=== PATIENT | male | born 1970 | race Caucasian/White ===

== ENCOUNTER → 2016-03-30 | Outpatient (CLI) | payer OTHER ==
--- NOTE | 2016-03-30 14:18 | P.PN ---
Progress Note - Text This is a 45-year-old male with history of right flank pain that has gotten better for the first time we saw the patient and after multiple injections. The best results came from the lumbar is efficacy ablation that he had a few months ago. The patient is back to work now and his work involves lots of walking. The patient is still planning on losing more weight after his weight came down to 427 pounds from about 500 pounds previously. The patient still takes oxycodone and [place] as needed for his pain and he gets prescriptions for these medications from his primary care physician. Today there is no tenderness in the right side of the lumbar spine and in the right flank area. The patient's pain is not better today than when he first came to our clinic and I think we do not have to see him on a regular basis any more we can plan on seeing him on an as-needed basis and if his pain starts to get out of control then we will plan on doing another radiofrequency ablation on the lumbar medial branches.
== END | disposition home or self-care (01) ==
CPT/HCPCS: 99211

== ENCOUNTER → 2016-07-09 | Outpatient (CLI) | payer OTHER ==
[2016-07-09 10:34] LABS: Basophils % (A) 1 %; CH 26.3; CHCM 33.4; Eosinophils # (A) 0.3 k/uL (0-0.7); Eosinophils % (A) 5 %; HCT 38.9 % (39.0-53.0); HDW 3.41; HGB 13.1 gm/dL (13.0-17.5); Luc # (Auto) 0.17; Luc % (Auto) 3; Lymphocytes # (A) 1.6 k/uL (1.0-4.8); Lymphocytes % (A) 30 %; MCH 26.7 pg (25.0-35.0); MCHC 33.7 g/dL (31.0-37.0); MCV 79.1 fL (80.0-100.0); Mean Platelet Volume 6.5; Monocytes # (A) 0.4 k/uL (0-1.0); Monocytes % (A) 7 %; Neutrophils # (A) 2.9 k/uL (1.3-7.7); Neutrophils % (A) 55 %; Poikilocytosis Slight; RBC 4.92 m/uL (4.30-5.90); RDW 15.1 % (11.5-15.5); WBC 5.3 k/uL (3.8-10.6)
[2016-07-09 11:13] LABS: ALT 46 U/L (21-72); AST 27 U/L (17-59); Alkaline Phosphatase 59 U/L (38-126); Anion Gap 8 mmol/L; Blood Urea Nitrogen 18 mg/dL (9-20); Calcium 9.3 mg/dL (8.4-10.2); Carbon Dioxide 27 mmol/L (22-30); Chloride 108 mmol/L (98-107); Cholesterol 134 mg/dL (<200); Glucose 91 mg/dL (74-99); HDL Cholesterol 30 mg/dL (40-60); Non-African American GFR(MDRD) >60 (>60 ml/min/1.73 sqM); Potassium 4.3 mmol/L (3.5-5.1); Sodium 143 mmol/L (137-145); Total Bilirubin 0.8 mg/dL (0.2-1.3); Triglycerides 222 mg/dL (<150)
== END | disposition home or self-care (01) ==
LOC: LABWHC1 10:09
PROVIDERS: ATTEND Family Medicine
DX: E78.5 Hyperlipidemia, unspecified (principal)
CPT/HCPCS: 36415; 80053; 80061; 84443; 85025

== ENCOUNTER → 2016-08-24 | Outpatient (CLI) | payer OTHER ==
--- NOTE | 2016-08-24 22:27 | US ---
EXAMINATION TYPE: US abdomen limited DATE OF EXAM: 08/24/2016 COMPARISON: Prior ultrasound October 09, 2014. CLINICAL HISTORY: Lipoma D17.0. Right flank palpable area x 3 years Right flank palpable area: superficial 2.3 x 1.4 x 3.3cm isoechoic non-vascular area Scanning of area of clinical concern redemonstrates oval well-circumscribed isoechoic to adjacent sub cutaneous fat avascular solid lesion that is grossly stable in size and appearance just below the ski n surface in the subcutaneous tissue of the right flank. No new mass or fluid collection is identifie d. IMPRESSION: Overall stable findings likely reflect benign lipoma. Once again consider surgical excis ion if there is any growth or pain.
== END | disposition home or self-care (01) ==
LOC: RADUSWWP 15:42
PROVIDERS: ATTEND Surgery
DX: D17.0 Benign lipomatous neoplasm of skin and subcutaneous tissue of head, face and neck (principal)

== ENCOUNTER 2017-01-18 17:22 | Emergency (ER) | payer OTHER ==
[2017-01-18 18:25] VITALS: TEMP 98
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
[2017-01-18 19:51] LABS: Anisocytosis Slight; Basophils # (A) 0.1 k/uL (0-0.2); Basophils % (A) 1 %; CHCM 32.8; Eosinophils # (A) 0.4 k/uL (0-0.7); Eosinophils % (A) 5 %; HCT 43.6 % (39.0-53.0); HDW 3.34; HGB 14.1 gm/dL (13.0-17.5); Luc # (Auto) 0.13; Luc % (Auto) 2; Lymphocytes # (A) 2.4 k/uL (1.0-4.8); Lymphocytes % (A) 29 %; MCH 25.8 pg (25.0-35.0); MCHC 32.4 g/dL (31.0-37.0); MCV 79.8 fL (80.0-100.0); Monocytes # (A) 0.6 k/uL (0-1.0); Monocytes % (A) 7 %; Neutrophils # (A) 4.8 k/uL (1.3-7.7); Neutrophils % (A) 58 %; RBC 5.46 m/uL (4.30-5.90); RDW 16.3 % (11.5-15.5); WBC 8.3 k/uL (3.8-10.6); WBC (Perox) 8.71
--- NOTE | 2017-01-18 19:56 | XR ---
EXAMINATION TYPE: XR chest 2V DATE OF EXAM: 01/18/2017 COMPARISON: 01/07/2015 HISTORY: Dysrhythmia TECHNIQUE: Frontal and lateral views of the chest are obtained. FINDINGS: There is no heart failure nor confluent pneumonic infiltrate. Costophrenic angles are martir r. Heart size is normal. There are chest leads. Bony thorax is intact. IMPRESSION: No active cardiopulmonary disease. There is improved inspiration compared to old exam.
[2017-01-18 20:02] LABS: ALT 51 U/L (21-72); AST 30 U/L (17-59); Alkaline Phosphatase 54 U/L (38-126); Anion Gap 12 mmol/L; Blood Urea Nitrogen 15 mg/dL (9-20); Calcium 9.7 mg/dL (8.4-10.2); Carbon Dioxide 25 mmol/L (22-30); Chloride 104 mmol/L (98-107); Glucose 87 mg/dL (74-99); Magnesium 1.9 mg/dL (1.6-2.3); Non-African American GFR(MDRD) >60 (>60 ml/min/1.73 sqM); Potassium 4.6 mmol/L (3.5-5.1); Sodium 141 mmol/L (137-145); Total Bilirubin 0.6 mg/dL (0.2-1.3); Total Protein 7.8 g/dL (6.3-8.2)
[2017-01-18 20:08] LABS: Creatine Kinase 131 U/L (55-170)
[2017-01-18 20:14] LABS: Prothrombin Time 9.8 sec (9.0-12.0)
[2017-01-18 20:21] LABS: Creatine Kinase MB 1.6 ng/mL (0.0-2.4); Troponin I <0.012 ng/mL (0.000-0.034)
[2017-01-18 20:23] LABS: Partial Thromboplastin Time 19.9 sec (22.0-30.0)
--- NOTE | 2017-01-18 20:37 | CT ---
EXAMINATION TYPE: CT brain wo con DATE OF EXAM: 01/18/2017 COMPARISON: NONE HISTORY: Sinus pressure and headache. CT DLP: 1120.60 mGycm. Automated Exposure Control for Dose Reduction was Utilized. TECHNIQUE: CT scan of the head is performed without contrast. FINDINGS: Ventricles have normal size. There is no mass effect nor midline shift. There is no sign of intracranial hemorrhage. The calvarium is intact. CONCLUSION: Negative CT scan of the brain.
[2017-01-18] MEDS ORDERED: AMOXIC-POT CLAV 875MG STARTER 2 EACH TABLET PO STA (21:27)
[2017-01-18 21:40] VITALS: BP 142/80; PULSE 72; RESP 16
== END 2017-01-18 21:40 | disposition home or self-care (01) ==
LOC: EC 17:22
DX: I49.3 Ventricular premature depolarization (principal); J32.9 Chronic sinusitis, unspecified; F32.9 Major depressive disorder, single episode, unspecified; E78.5 Hyperlipidemia, unspecified; I10 Essential (primary) hypertension; H91.90 Unspecified hearing loss, unspecified ear; Z87.891 Personal history of nicotine dependence; Z79.51 Long term (current) use of inhaled steroids; Z79.899 Other long term (current) drug therapy; Z88.8 Allergy status to other drugs, medicaments and biological substances
CPT/HCPCS: 36415; 70450; 71020; 80053; 82550; 82553; 83735; 84484; 85025; 85610; 85730; 93005; 99285

== ENCOUNTER → 2017-03-31 | Outpatient (CLI) | payer BC ==
--- NOTE | 2017-03-31 15:26 | US ---
EXAMINATION TYPE: US abdomen complete DATE OF EXAM: 03/31/2017 COMPARISON: Soft tissue ultrasound 08/24/2016 CLINICAL HISTORY: 46-year-old male D17.9 Lipoma. Right flank palpable. TECHNIQUE: Multiple sonographic images of the abdomen are obtained. Findings: [employer] WORK[employer] 2ND SHIFT NOTES: Exam is technically limited due to large body habitus and overlying bowel gas. Liver Length: 22.8 cm Gallbladder Wall: 0.1 cm CBD: 0.2 cm Spleen: 14.6 cm Right Kidney: 11.5 x 5.4 x 5.0 cm Left Kidney: 14.1 x 5.7 x 5.5 cm Pancreas: Suboptimal visualization secondary to shadowing from bowel gas Liver: markedly echogenic, enlarged, and attenuating. The secondary limits assessment for focal lesio n. Gallbladder: Limited detail visualization. There is a hyperechoic 4 mm focus centrally within the ga llbladder probably representing underlying calculi. No abnormal distention, wall thickening, or peric holecystic fluid.Evidence for sonographic Godoy's sign: no CBD: wnl Spleen: enlarged Right Kidney: limitedly seen without obvious hydronephrosis. Left Kidney: limitedly seen without obvious hydronephrosis. Upper IVC: Suboptimal visualization Abd Aorta: upper and mid only seen, distally gassed out Right flank at the palpable site: solid, isoechoic, circumscribed oval mass with onion peel appearanc e located in the subcutaneous fat = 3.4 x 2.4 x 1.5cm, and was previously seen by US here where it me asured 3.3 x 2.3 x 1.4 cm. IMPRESSION: 1. Palpable area along the right flank corresponds to a probable 3.4 cm subcutaneous lipoma. 2. Hepatosplenomegaly. Severe hepatic steatosis. This secondarily limits assessment for focal lesion. 3. Suspect underlying cholelithiasis. Multiple structures are suboptimally visualized due to patient body habitus.
== END | disposition home or self-care (01) ==
LOC: RADUSWWP 14:16
PROVIDERS: ATTEND Surgery
DX: K76.0 Fatty (change of) liver, not elsewhere classified (principal); R16.2 Hepatomegaly with splenomegaly, not elsewhere classified; D17.9 Benign lipomatous neoplasm, unspecified
CPT/HCPCS: 76700

== ENCOUNTER 2017-06-27 07:03 | Day surgery (SDC) | payer BC ==
[2017-06-23 10:19] VITALS: BMI 56.5
[~2017-06-27 07:03] MED LIST: DEXAMETHASONE SOD PHOSPHATE 10 MG/ML 1 ML VIAL IV ONE; ONDANSETRON 4 MG/2 ML VIAL IVP ONE; SCOPOLAMINE 1.5MG/72HR PATCH TRANSDERM ONE
[2017-06-27 07:35] VITALS: TEMP 98.6
[2017-06-27] MEDS ORDERED: LIDOCAINE 1% 20 ML VIAL (10MG/ML) FOR IV START IV ONE (07:58)
[2017-06-27] MEDS ORDERED: LACTATED RINGERS 1,000 ML IV ONE (08:02)
[2017-06-27] MEDS ORDERED: MIDAZOLAM 2 MG/2 ML VIAL ONE (08:15)
[2017-06-27] MEDS ORDERED: KETOROLAC 30 MG/ML 1 ML VIAL ONE (08:15)
[2017-06-27] MEDS ORDERED: LIDOCAINE 1% INJ 10MG/ML (20 ML MDV) ONE (08:15)
[2017-06-27] MEDS ORDERED: GLUCAGON 1 MG/ML VIAL ONE (08:15)
[2017-06-27] MEDS ORDERED: PROPOFOL 10 MG/ML 20 ML VIAL IV ONE (08:15)
--- NOTE | 2017-06-27 08:49 | P.PCN ---
Date of Procedure: 06/27/17 Preoperative Diagnosis: Anemia, dark blood in stool, change in bowel habits Postoperative Diagnosis: Normal mucosa to the area of the cecum, internal hemorrhoids Procedure(s) Performed: Colonoscopy Anesthesia: SUBHA Surgeon: Alba Payne Estimated Blood Loss (ml): 0 IV fluids (ml): 300 Pathology: none sent Condition: stable Disposition: PACU Indications for Procedure: Anemia, history of dark stools Operative Findings: Internal hemorrhoids Description of Procedure: Patient was taken to the endoscopy suite and placed in the left lateral decubitus position. Special care was taken with his right knee as he states that at times this goes out of joint. Sedation was given. Rectal examination was performed patient was noted to have adequate sphincter tone no masses. Colonoscope was passed through the anus into the rectum. It was passed into the sigmoid colon which was somewhat spastic and glucagon was given. Was able to be passed through the sigmoid colon up to the splenic flexure transverse colon hepatic flexure right colon down to the area of the cecum. The cecum was clearly visualized however despite multiple attempts we could not pass the scope into the cecum. No mucosal lesions of concern were seen in the area of the cecum however. Careful observation was then madeof the mucosa as the colonoscope was withdrawn. No mucosal lesions of concern were noted in the right colon or the transverse colon. No mucosal lesions of concern in the left colon or sigmoid colon. Scope was brought to the rectum where it was retroflexed internal hemorrhoids identified. The patient's bowel prep was somewhat suboptimal making for mucosal detail somewhat difficult to evaluate however no lesions of concern were noted. Approximately 8 minutes were taken to withdraw the scope from the area of the cecum to the rectum. Impression/plan: 1. Anemia of uncertain etiology no colonic lesions identified to cause this 2. Internal hemorrhoids Plan: 1. Consider EGD to evaluate for anemia 2. At this time no colonic lesions of concern identified 3. Conservative management of hemorrhoids 4. Repeat scope 7-10 years unless patient develops symptoms or reason prior to this for repeat colonoscopy
[2017-06-27 08:51] VITALS: RESP 18
--- NOTE | 2017-06-27 08:51 | P.DS ---
Providers Attending physician: Alba Payne Primary care physician: Armand Jewell Plan - Discharge Summary New Discharge Prescriptions: No Action Ascorbic Acid [Vitamin C] 1,000 mg PO DAILY Atorvastatin [Lipitor] 40 mg PO HS Multivitamin [Men's Multi-Vitamin] 1 tab PO DAILY Fish Oil/Dha/Epa [Fish Oil 1,200 mg Fish Oil] 1,200 mg PO BID Fluticasone Nasal [place] [Flonase Nasal [place]] 2 spray EA NOSTRIL DAILY Methocarbamol [Robaxin] 1,000 mg PO QID PRN PRN Reason: Pain Cyanocobalamin [Vitamin B-12] 1,000 mcg PO DAILY Losartan Potassium [Cozaar] 100 mg PO DAILY Cholecalciferol [Vitamin D3] 5,000 unit PO DAILY oxyCODONE HCL 15 mg PO Q6HR PRN PRN Reason: Pain Celecoxib [CeleBREX] 200 mg PO BID Discharge Medication List Ascorbic Acid [Vitamin C] 1,000 mg PO DAILY 12/03/14 [History] Atorvastatin [Lipitor] 40 mg PO HS 12/03/14 [History] Fish Oil/Dha/Epa [Fish Oil 1,200 mg Fish Oil] 1,200 mg PO BID 12/03/14 [History] Multivitamin [Men's Multi-Vitamin] 1 tab PO DAILY 12/03/14 [History] Fluticasone Nasal [place] [Flonase Nasal [place]] 2 spray EA NOSTRIL DAILY 12/23/14 [History] Methocarbamol [Robaxin] 1,000 mg PO QID PRN 04/22/15 [History] Cyanocobalamin [Vitamin B-12] 1,000 mcg PO DAILY 11/09/15 [History] Losartan Potassium [Cozaar] 100 mg PO DAILY 11/09/15 [History] Cholecalciferol [Vitamin D3] 5,000 unit PO DAILY 12/11/15 [History] oxyCODONE HCL 15 mg PO Q6HR PRN 01/18/17 [History] Celecoxib [CeleBREX] 200 mg PO BID 06/23/17 [History] Follow up Appointment(s)/Referral(s): Alba Payne MD [STAFF PHYSICIAN] - 1 Week Activity/Diet/Wound Care/Special Instructions: Do not drive today Discharge Disposition: HOME SELF-CARE
[2017-06-27 09:28] VITALS: BP 115/64; PULSE 74
== END 2017-06-27 09:30 | disposition home or self-care (01) ==
LOC: ORWHC2ENDO 07:03
PROVIDERS: ATTEND Surgery
DX: K64.8 Other hemorrhoids (principal); D64.9 Anemia, unspecified; E78.5 Hyperlipidemia, unspecified; I10 Essential (primary) hypertension; F41.9 Anxiety disorder, unspecified; F32.9 Major depressive disorder, single episode, unspecified; M54.9 Dorsalgia, unspecified; M19.90 Unspecified osteoarthritis, unspecified site; E66.01 Morbid (severe) obesity due to excess calories; Z68.43 Body mass index [BMI] 50.0-59.9, adult; H91.90 Unspecified hearing loss, unspecified ear; G47.33 Obstructive sleep apnea (adult) (pediatric); Z99.89 Dependence on other enabling machines and devices; Z79.51 Long term (current) use of inhaled steroids; Z79.899 Other long term (current) drug therapy; Z87.891 Personal history of nicotine dependence; Z88.8 Allergy status to other drugs, medicaments and biological substances
CPT/HCPCS: 45378; J2250; J1610; J2001; J1885; J2704

== ENCOUNTER → 2018-05-14 | Outpatient (CLI) | payer BC, OTHER ==
--- NOTE | 2018-05-15 08:36 | XR ---
Right foot and right ankle history: Pain, erythema, cellulitis 3 views of the right foot and 3 views of the right ankle are submitted. There is spurring at the tibiotalar joint. Small plantar calcaneal spur is noted, enthesophyte presen t at the insertion of the Achilles tendon. Alignment and bone mineralization are maintained. Some cor tical thickening suspected. There may be distal diaphyseal tibia. Soft tissue swelling is noted. No e vident fracture or dislocation. Hallux valgus deformity noted. There is associated degenerative bianchi e. No evident periostitis to suggest osteomyelitis. IMPRESSION: Cortical thickening noted within the tibia, see report of right leg same date. Soft tissu e swelling, osteoarthritis. Additional findings above.
--- NOTE | 2018-05-15 10:35 | XR ---
EXAMINATION TYPE: XR tibia fibula RT DATE OF EXAM: 05/15/2018 COMPARISON: NONE HISTORY: 47-year-old male pain, redness, and cellulitis medially. Fall 9 days ago. TECHNIQUE: 2 views FINDINGS: Suggestion of old healed fracture deformities proximal third fibular shaft and distal third tibial sh aft. Pronounced hypertrophic well-formed bony callus is demonstrated. There is overlying deformity to the medial side and soft tissues. No fatimah periostitis or osteolysis. IMPRESSION: Chronic healed fracture deformity distal third tibial shaft. Overlying medial sided soft tissue defor mity suggesting healed ulcer or healed site of prior penetrating injury. No convincing radiographic e vidence for osteomyelitis. If further evaluation is desired, consider three-phase bone scan or MRI.
== END | disposition home or self-care (01) ==
LOC: RADXRMAIN 15:22
PROVIDERS: ATTEND Midwife
DX: M19.071 Primary osteoarthritis, right ankle and foot (principal)

== ENCOUNTER 2018-08-24 17:46 | Emergency (ER) | payer OTHER ==
[2018-08-24 17:56] VITALS: TEMP 98.4
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
[2018-08-24] MEDS ORDERED: SODIUM CHLORIDE 0.9% 500 ML 500 ML IV ONE (18:20)
[2018-08-24 19:02] LABS: Anisocytosis Slight; Basophils % (A) 0 %; Eosinophils # (A) 0.3 k/uL (0-0.7); Eosinophils % (A) 4 %; HCT 43.7 % (39.0-53.0); HGB 13.9 gm/dL (13.0-17.5); Lymphocytes # (A) 2.1 k/uL (1.0-4.8); Lymphocytes % (A) 29 %; MCH 24.9 pg (25.0-35.0); MCHC 31.8 g/dL (31.0-37.0); MCV 78.2 fL (80.0-100.0); Mean Platelet Volume 6.9; Microcytosis Slight; Monocytes # (A) 0.4 k/uL (0-1.0); Monocytes % (A) 6 %; Neutrophils # (A) 4.3 k/uL (1.3-7.7); Neutrophils % (A) 59 %; Platelet Count 305 k/uL (150-450); RBC 5.58 m/uL (4.30-5.90); WBC 7.2 k/uL (3.8-10.6)
[2018-08-24 19:21] LABS: ALT 55 U/L (21-72); AST 49 U/L (17-59); African American GFR (CKD) >90 (>60 ml/min/1.73 sqM); Albumin 4.2 g/dL (3.5-5.0); Alkaline Phosphatase 60 U/L (38-126); Anion Gap 10 mmol/L; Blood Urea Nitrogen 16 mg/dL (9-20); Calcium 9.7 mg/dL (8.4-10.2); Carbon Dioxide 25 mmol/L (22-30); Chloride 106 mmol/L (98-107); Glucose 110 mg/dL (74-99); Sodium 141 mmol/L (137-145); Total Bilirubin 0.7 mg/dL (0.2-1.3); Total Protein 7.2 g/dL (6.3-8.2)
[2018-08-24 19:23] LABS: Potassium 4.6 mmol/L (3.5-5.1)
[2018-08-24 19:31] VITALS: BP 148/79; PULSE 82; RESP 18
== END 2018-08-24 19:49 | disposition home or self-care (01) ==
LOC: EC 17:46
DX: K92.1 Melena (principal); I10 Essential (primary) hypertension; K59.00 Constipation, unspecified; E78.5 Hyperlipidemia, unspecified; G47.30 Sleep apnea, unspecified; Z99.89 Dependence on other enabling machines and devices; Z87.891 Personal history of nicotine dependence; Z79.1 Long term (current) use of non-steroidal anti-inflammatories (NSAID); Z79.899 Other long term (current) drug therapy; Z88.8 Allergy status to other drugs, medicaments and biological substances
CPT/HCPCS: 36415; 80053; 82272; 85025; 99284

== ENCOUNTER 2020-11-10 21:15 | Emergency (ER) | payer OTHER ==
[2020-11-10 21:22] VITALS: PULSE 79
[2020-11-10] MEDS ORDERED: KETOROLAC 15 MG/ML 1 ML VIAL IVP STA (21:36)
[2020-11-10] MEDS ORDERED: MORPHINE SULFATE 4 MG/ML SYRINGE IV STA (21:36)
[2020-11-10] MEDS ORDERED: SODIUM CHLORIDE 0.9% 1,000 ML IV STA (21:36)
[2020-11-10] MEDS ORDERED: ONDANSETRON 4 MG/2 ML VIAL IVP STA (21:36)
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
[2020-11-10 22:33] LABS: Appearance,Urine Clear (Clear); Bilirubin,Urine Negative (Negative); Blood,Urine Moderate (Negative); Color,Urine Yellow; Glucose,Urine (UA) Negative (Negative); Hyaline Casts,Urine 24 /lpf (0-2); Ketones,Urine Negative (Negative); Leukocyte Esterase,Urine Negative (Negative); Mucus,Urine Many /hpf; Nitrite,Urine Negative (Negative); Protein,Urine Trace (Negative); RBC,Urine 172 /hpf (0-5); Specific Gravity,Urine 1.022 (1.001-1.035); Squamous Epithelial Cell,Urine 1 /hpf (0-4); Urobilinogen,Urine <2.0 mg/dL (<2.0); WBC,Urine 1 /hpf (0-5)
--- NOTE | 2020-11-10 22:37 | XR ---
EXAMINATION TYPE: XR KUB DATE OF EXAM: 11/10/2020 COMPARISON: NONE HISTORY: Flank pain TECHNIQUE: 2 views upright FINDINGS: There is no sign of intestinal obstruction or pneumoperitoneum. Fecal pattern is normal. Th ere are no pathologic calcifications over the kidneys. Lung bases appear clear. IMPRESSION: Nonacute abdomen.
[2020-11-10] MEDS ORDERED: MORPHINE SULFATE 2 MG/ML SYRINGE IVP ONE (22:46)
[2020-11-10 22:48] LABS: Anisocytosis Slight; Basophils % (A) 0 %; Eosinophils # (A) 0.1 k/uL (0-0.7); Eosinophils % (A) 1 %; HCT 42.2 % (39.0-53.0); HGB 14.2 gm/dL (13.0-17.5); Lymphocytes # (A) 1.2 k/uL (1.0-4.8); Lymphocytes % (A) 15 %; MCHC 33.6 g/dL (31.0-37.0); MCV 80.2 fL (80.0-100.0); Mean Platelet Volume 7.1; Monocytes # (A) 0.5 k/uL (0-1.0); Monocytes % (A) 6 %; Neutrophils # (A) 6.2 k/uL (1.3-7.7); Neutrophils % (A) 76 %; Platelet Count 262 k/uL (150-450); Poikilocytosis Slight; RBC 5.25 m/uL (4.30-5.90); WBC 8.1 k/uL (3.8-10.6)
[2020-11-10 22:50] LABS: ALT 69 U/L (4-49); AST 66 U/L (17-59); African American GFR (CKD) >90 (>60 ml/min/1.73 sqM); Albumin 4.4 g/dL (3.5-5.0); Alkaline Phosphatase 63 U/L (38-126); Amylase 44 U/L (30-110); Anion Gap 12 mmol/L; Blood Urea Nitrogen 18 mg/dL (9-20); Calcium 9.7 mg/dL (8.4-10.2); Carbon Dioxide 22 mmol/L (22-30); Chloride 102 mmol/L (98-107); Glucose 137 mg/dL (74-99); Lipase 105 U/L (23-300); Non-African American GFR(CKD) >90 (>60 ml/min/1.73 sqM); Sodium 136 mmol/L (137-145); Total Bilirubin 0.8 mg/dL (0.2-1.3); Total Protein 7.3 g/dL (6.3-8.2)
[2020-11-10 23:33] LABS: Potassium 4.9 mmol/L (3.5-5.1)
[2020-11-10] MEDS ORDERED: TAMSULOSIN 0.4 MG CAP.ER.24H PO STA (23:52)
[2020-11-10] MEDS ORDERED: MORPHINE SULFATE 4 MG/ML SYRINGE IVP STA (23:52)
[2020-11-10] MEDS ORDERED: ACET/COD 300 MG/30 MG STARTER PACK 6 TAB BTL PO STA (23:57)
[2020-11-11] MEDS ORDERED: VALSARTAN 160 MG TAB PO STA
[2020-11-11 00:19] VITALS: BP 184/101; RESP 17; TEMP 98.1
== END 2020-11-11 00:24 | disposition home or self-care (01) ==
LOC: EC 21:15
DX: N20.0 Calculus of kidney (principal); I10 Essential (primary) hypertension; E78.5 Hyperlipidemia, unspecified; F32.9 Major depressive disorder, single episode, unspecified; Z79.1 Long term (current) use of non-steroidal anti-inflammatories (NSAID); Z79.899 Other long term (current) drug therapy; Z82.49 Family history of ischemic heart disease and other diseases of the circulatory system
CPT/HCPCS: 36415; 80053; 82150; 83690; 85025; 81001; 74018; 96374; 96375 ×2; 96376 ×2; 96361; 99284; J2270 ×3; J2405; J1885

== ENCOUNTER 2020-11-12 17:36 | Emergency (ER) | payer OTHER ==
[2020-11-12 19:30] VITALS: TEMP 98.7
[2020-11-12 19:56] VITALS: BP 139/91; PULSE 78; RESP 20
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
--- NOTE | 2020-11-12 21:13 | CT ---
EXAMINATION TYPE: CT abdomen pelvis wo con DATE OF EXAM: 11/12/2020 COMPARISON: Ultrasound abdomen 03/31/2017 HISTORY: Left side flank pain and hematuria. CT DLP: 3475 mGycm Automated exposure control for dose reduction was used. TECHNIQUE: Helical acquisition of images was performed from the lung bases through the pelvis. FINDINGS: Technical limitation: There is a ringlike artifact throughout much of the abdomen, with hyperdensity in the left lateral position over the abdomen due to body habitus. LUNG BASES: No acute process. However, an incidental 1.6 cm ground glass opacity is noted in the rig ht lower lobe; would recommend eventual follow-up lung CT imaging to further characterize the lungs. LIVER/GB: No significant abnormality is appreciated. PANCREAS: No significant abnormality is seen. SPLEEN: No significant abnormality is seen. ADRENALS: No significant abnormality is seen. KIDNEYS, URETERS, BLADDER: 1.) There is a 3 mm calcification in the distal most left ureter, associated with minimal hydroureter and mild on the left. There are two other 3 mm nonobstructing calcifications within the left kidney. There are two 2 mm nonobstructing calcifications in the right kidney. There is no right hydronephros is or hydroureter. Urinary bladder is negative. 2.) There is a 6 cm hypodense mass within the kidney posterolaterally. CT attenuation measures approx imately 33 Hounsfield units. Recommend further characterization with dedicated triple phase renal mas s protocol with CT or MRI. . FREE AIR: No free air is visualized RETROPERITONEAL ADENOPATHY: None visualized REPRODUCTIVE ORGANS: No significant abnormality is seen URINARY BLADDER: No significant abnormality is seen. PELVIC ADENOPATHY: None visualized. OSSEOUS STRUCTURES: No significant abnormality is seen. BOWEL: No significant abnormality is seen. IMPRESSION: 1. MINIMAL LEFT OBSTRUCTIVE UROPATHY SECONDARY TO 3 MM DISTAL LEFT URETERAL CALCIFICATION. 2. INCIDENTAL 6 CM HYPODENSE LEFT RENAL MASS, CONCERNING FOR POSSIBLE RENAL CELL CARCINOMA, WITH REC OMMENDATION FOR FOLLOW-UP RENAL MASS PROTOCOL CT/MRI CHARACTERIZATION. 2. INCIDENTAL FINDIN.6 CM GROUNDGLASS RIGHT LOWER LOBE PULMONARY NODULE, DISCUSSED.
== END 2020-11-12 21:42 | disposition home or self-care (01) ==
LOC: EC 17:36
DX: N20.0 Calculus of kidney (principal); N28.89 Other specified disorders of kidney and ureter; I10 Essential (primary) hypertension; E78.5 Hyperlipidemia, unspecified; Z79.1 Long term (current) use of non-steroidal anti-inflammatories (NSAID); Z79.899 Other long term (current) drug therapy; Z82.49 Family history of ischemic heart disease and other diseases of the circulatory system
CPT/HCPCS: 74176; 81001; 87086; 99284

== ENCOUNTER → 2020-11-27 | Outpatient (CLI) | payer OTHER ==
--- NOTE | 2020-11-27 13:42 | CT ---
EXAMINATION TYPE: CT abdomen pelvis w con DATE OF EXAM: 11/27/2020 COMPARISON: 11/27/2020 INDICATION: Renal mass DLP: 8379.5 mGycm, Automated exposure control for dose reduction was used. CONTRAST: 100 mL of Isovue 300. Study performed with Oral Contrast TECHNIQUE: Axial images were obtained from above the diaphragm to the pubic rami in the axial plane a t 5 mm thick sections. Reconstructed images are reviewed on the computer in the coronal plane. FINDINGS: Limited CT sections are obtained the lung bases. A 0.3 cm nodule may be in the anterior right middle lobe. Series 4 image 3. There is a 1.6 cm nodule in the posterior right lung base. Series [address] ABDOMEN: Liver: Normal Spleen: Normal Pancreas: Normal Adrenal glands: The adrenal glands are normal. Gallbladder: Normal Kidneys: There is a 7.2 x 6.5 cm mass along the posterior lateral upper pole left kidney. No hydronep hrosis is present. No cysts are present. Delayed images were obtained through the kidneys, mass is slightly hypodense enhancement compared to the remaining portions of the left kidney. Aorta: Vascular calcification is within the aorta. Inferior vena cava: Normal. CT PELVIS: Loops of bowel within the abdomen and pelvis are normal. There are loops of bowel which are incom pletely distended or lack oral contrast limiting their evaluation. Appendix: Normal as visualized. Urinary bladder: Normal. Genitourinary structures: Prostate appears normal Osseous structures: No suspicious lytic or sclerotic lesions. Some degenerative disc changes through the lumbar spine IMPRESSIONS: 1. 7.2 x 6.5 cm mass posterior lateral upper pole left kidney. Workup for renal cell carcinoma is re commended. 2. There is a 1.6 cm pulmonary nodule at the right lung base.
== END | disposition home or self-care (01) ==
LOC: RADCTMAIN 10:48
PROVIDERS: ATTEND Family Medicine
DX: N28.89 Other specified disorders of kidney and ureter (principal)
CPT/HCPCS: 74177; Q9967 ×2

== ENCOUNTER → 2020-12-11 | Outpatient (CLI) | payer OTHER ==
--- NOTE | 2020-12-11 09:31 | XR ---
EXAMINATION TYPE: XR chest 2V DATE OF EXAM: 12/11/2020 COMPARISON: 01/18/2017 INDICATION: Possible lung nodules TECHNIQUE: Frontal and lateral views of the chest are obtained. FINDINGS: The heart size is normal. The pulmonary vasculature is normal. There is some faintly visualized rounded density which could be summation density or nipple shadow at the right lung base. This measures 1.6 cm. Lung alvarez otherwise appear clear. IMPRESSION: 1. Possible right lower lobe nodule. Consider repeat chest with nipple markers
== END | disposition home or self-care (01) ==
LOC: RADXRMAIN 09:12
PROVIDERS: ATTEND Urology
DX: N28.89 Other specified disorders of kidney and ureter (principal)
CPT/HCPCS: 71046

== ENCOUNTER → 2020-12-18 | Outpatient (CLI) | payer OTHER ==
[2020-12-18 15:45] LABS: Basophils # (A) 0.04 X 10*3/uL (0.00-0.10); Basophils % (A) 0.7 %; Eosinophils # (A) 0.19 X 10*3/uL (0.04-0.35); Eosinophils % (A) 3.1 %; HCT 42.6 % (39.6-50.0); HGB 13.5 g/dL (13.0-17.0); Lymphocytes # (A) 1.95 X 10*3/uL (0.90-5.00); Lymphocytes % (A) 31.9 %; MCHC 31.7 g/dL (32.0-37.0); MCV 81.9 fL (80.0-97.0); Mean Platelet Volume 9.7 fL (9.5-12.2); Monocytes # (A) 0.62 X 10*3/uL (0.20-1.00); Monocytes % (A) 10.1 %; Neutrophils # (A) 3.27 X 10*3/uL (1.80-7.70); Neutrophils % (A) 53.4 %; Platelet Count 297 X 10*3/uL (140-440); RDW 16.9 % (11.5-14.5); WBC 6.12 X 10*3/uL (4.50-10.00)
[2020-12-18 18:29] LABS: ALT 64 U/L (10-49); AST 32 U/L (14-35); African American GFR (CKD) 128.7 (60.0-200.0); Albumin 4.4 g/dL (3.8-4.9); Albumin/Globulin Ratio 1.65 (1.60-3.17); Alkaline Phosphatase 76 U/L (41-126); BUN/Creat Ratio 17.91 Ratio (12.00-20.00); Blood Urea Nitrogen 12.7 mg/dL (9.0-27.0); Calcium 9.3 mg/dL (8.7-10.3); Carbon Dioxide 20.3 mmol/L (21.6-31.8); Chloride 105 mmol/L (96-109); Globulin 2.7 g/dL (1.6-3.3); Glucose 100 mg/dL (70-110); Potassium 4.4 mmol/L (3.5-5.5); Sodium 141 mmol/L (135-145)
[2020-12-18 20:27] LABS: C Reactive Protein <0.30 mg/dL (0.00-0.80); Erythrocyte Sedimentation Rate 17 mm/Hr (0-15)
== END | disposition home or self-care (01) ==
LOC: LABWHC1 10:16
PROVIDERS: ATTEND Internal Medicine Gastroenterology
DX: K52.9 Noninfective gastroenteritis and colitis, unspecified (principal)
CPT/HCPCS: 36415; 80053; 83516; 85025; 85652; 86140

== ENCOUNTER → 2020-12-31 | Outpatient (CLI) | payer OTHER ==
[2020-12-31 11:03] LABS: African American GFR (CKD) >90 (>60 ml/min/1.73 sqM); Blood Urea Nitrogen 18 mg/dL (9-20); Non-African American GFR(CKD) >90 (>60 ml/min/1.73 sqM)
--- NOTE | 2020-12-31 12:35 | CT ---
EXAMINATION TYPE: CT chest w con DATE OF EXAM: 12/31/2020 COMPARISON: none HISTORY: Pulmonary Nodule CT DLP: 1916.8 mGycm Automated exposure control for dose reduction was used. CONTRAST: CT scan of the chest is performed with IV Contrast, patient injected with 80 mL of Isovue 300. FINDINGS: LUNGS: 1.3 cm pulmonary nodule right lower lobe with internal calcification may reflect a granuloma. However given left renal Mass Metastatic lesion is difficult to exclude however. No additional lesion s seen. MEDIASTINUM: There are no greater than 1 cm hilar or mediastinal lymph nodes. No pericardial effusi on is seen. Thoracic aorta is of normal caliber. The heart is not enlarged. UPPER ABDOMEN: Partially imaged left renal mass. OTHER: No additional significant abnormality is seen. IMPRESSION: 1.3 cm pulmonary nodule right lower lobe with internal calcification may reflect a granuloma. However given left renal Mass Metastatic lesion is difficult to exclude however. No additional lesions seen.
== END | disposition home or self-care (01) ==
LOC: RADCTMAIN 09:17
PROVIDERS: ATTEND Urology
DX: R91.1 Solitary pulmonary nodule (principal)
CPT/HCPCS: 82565; 84520; 71260; 36415; Q9967

== ENCOUNTER → 2021-04-22 | Outpatient (CLI) | payer OTHER ==
[2021-04-22 23:34] LABS: African American GFR (CKD) 116.6 (60.0-200.0); Anion Gap 12.1 mmol/L (10.00-18.00); Blood Urea Nitrogen 21.6 mg/dL (9.0-27.0); Carbon Dioxide 24.9 mmol/L (20.0-27.5); Non-African American GFR(CKD) 100.6 (60.0-200.0); Potassium 4.4 mmol/L (3.5-5.5)
== END | disposition home or self-care (01) ==
LOC: LABWHC1 13:13
PROVIDERS: ATTEND Internal Medicine Cardiovascular Disease
DX: I10 Essential (primary) hypertension (principal)
CPT/HCPCS: 36415; 80051; 82565; 84520

== ENCOUNTER 2021-05-19 15:38 | Emergency (ER) | payer OTHER ==
[2021-05-19 15:43] VITALS: TEMP 101.2
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
[2021-05-19 17:20] LABS: Anisocytosis Slight; Appearance,Urine Cloudy (Clear); Bacteria,Urine Many /hpf; Basophils # (A) 0.1 k/uL (0-0.2); Basophils % (A) 1 %; Bilirubin,Urine Negative (Negative); Blood,Urine Moderate (Negative); Color,Urine Yellow; Eosinophils # (A) 0.1 k/uL (0-0.7); Eosinophils % (A) 1 %; Glucose,Urine (UA) Negative (Negative); HCT 35.8 % (39.0-53.0); HGB 11.5 gm/dL (13.0-17.5); Hypochromasia Slight; Ketones,Urine Negative (Negative); Leukocyte Esterase,Urine Large (Negative); Lymphocytes % (A) 7 %; MCH 25.1 pg (25.0-35.0); MCHC 32.1 g/dL (31.0-37.0); Mean Platelet Volume 6.7; Microcytosis Slight; Monocytes # (A) 0.8 k/uL (0-1.0); Monocytes % (A) 5 %; Mucus,Urine Few /hpf; Neutrophils # (A) 13.2 k/uL (1.3-7.7); Neutrophils % (A) 86 %; Nitrite,Urine Positive (Negative); PH, Urine 5.5 (5.0-8.0); Platelet Count 426 k/uL (150-450); Poikilocytosis Slight; Protein,Urine 2+ (Negative); RBC 4.58 m/uL (4.30-5.90); RBC,Urine 129 /hpf (0-5); RDW 18.7 % (11.5-15.5); Specific Gravity,Urine 1.019 (1.001-1.035); Squamous Epithelial Cell,Urine 1 /hpf (0-4); Urobilinogen,Urine <2.0 mg/dL (<2.0); WBC 15.4 k/uL (3.8-10.6); WBC,Urine >182 /hpf (0-5)
[2021-05-19 17:25] LABS: Albumin 4.3 g/dL (3.5-5.0); Calcium 9.7 mg/dL (8.4-10.2); Magnesium 1.8 mg/dL (1.6-2.3); Potassium 4.6 mmol/L (3.5-5.1)
[2021-05-19 17:52] LABS: Influenza A Not Detected (Not Detectd); Influenza B Not Detected (Not Detectd)
[2021-05-19] MEDS ORDERED: cefTRIAXone IN SWFI 1,000 MG/10 ML SYRINGE IVP STA (17:57)
[2021-05-19] MEDS ORDERED: SODIUM CHLORIDE 0.9% 1,000 ML IV STA ×2 (17:57)
--- NOTE | 2021-05-19 18:04 | XR ---
EXAMINATION TYPE: XR chest 2V DATE OF EXAM: 05/19/2021 COMPARISON: 12/11/2020 HISTORY: Fever and dyspnea. TECHNIQUE: Frontal and lateral views of the chest are obtained. FINDINGS: There is mild perihilar and bibasilar streaky opacities. No focal consolidation, pleural e ffusion, or pneumothorax seen. The cardiac silhouette size is within normal limits. The osseous st ructures are intact. IMPRESSION: Mild perihilar/bibasilar opacities may represent atelectasis. Superimposed infiltrate is better excluded clinically.
[2021-05-19] MEDS ORDERED: ACETAMINOPHEN TAB 500 MG TAB PO STA (18:16)
[2021-05-19 19:18] VITALS: RESP 20
[2021-05-19 19:22] VITALS: BP 153/84; PULSE 108
== END 2021-05-19 19:22 | disposition left against medical advice (07) ==
LOC: EC 15:38
DX: R09.02 Hypoxemia (principal); N39.0 Urinary tract infection, site not specified; E86.0 Dehydration; D72.829 Elevated white blood cell count, unspecified; N17.9 Acute kidney failure, unspecified; Z20.822 Contact with and (suspected) exposure to COVID-19; I10 Essential (primary) hypertension; E78.5 Hyperlipidemia, unspecified; F32.A Depression, unspecified; Z79.82 Long term (current) use of aspirin; Z79.01 Long term (current) use of anticoagulants; Z79.899 Other long term (current) drug therapy
CPT/HCPCS: 36415; 85379; 80053; 82550; 83605; 83735; 84484; 85025; 81001; 87040; 87086; 87077; 87186; 87636; 71046; 99284; 96374; 96361; J0696

== ENCOUNTER → 2021-06-28 | Outpatient (CLI) | payer OTHER ==
--- NOTE | 2021-06-28 14:22 | XR ---
EXAMINATION TYPE: XR chest 2V DATE OF EXAM: 06/28/2021 COMPARISON: 05/19/2021 HISTORY: Chest pain TECHNIQUE: Frontal and lateral views of the chest are obtained. FINDINGS: There is no focal air space opacity. Nodular density right lower lobe may reflect nipple shadow. Cons ider repeat examination with nipple markers in place. Linear basilar atelectasis. No evidence for pneumothorax. No pleural effusion. The cardiac silhouette size is within normal limits. The osseous structures are grossly intact. IMPRESSION: 1. Nodular density right lower lobe may reflect nipple shadow. Consider repeat examination with nipp le markers in place.
[2021-06-28 18:04] LABS: Basophils # (A) 0.03 X 10*3/uL (0.00-0.10); Basophils % (A) 0.4 %; Eosinophils # (A) 0.26 X 10*3/uL (0.04-0.35); Eosinophils % (A) 3.6 %; HCT 41.1 % (39.6-50.0); HGB 12.3 g/dL (13.0-17.0); Lymphocytes # (A) 2.11 X 10*3/uL (0.90-5.00); Lymphocytes % (A) 29.1 %; MCHC 29.9 g/dL (32.0-37.0); MCV 80.1 fL (80.0-97.0); Mean Platelet Volume 9.4 fL (9.5-12.2); Monocytes # (A) 0.64 X 10*3/uL (0.20-1.00); Monocytes % (A) 8.8 %; NRBC Per 100 WBC 0 /100 WBCS (0.0-0.0); Neutrophils # (A) 4.14 X 10*3/uL (1.80-7.70); Neutrophils % (A) 57.1 %; Platelet Count 371 X 10*3/uL (140-440); RBC 5.13 X 10*6/uL (4.40-5.60); RDW 20.3 % (11.5-14.5); WBC 7.25 X 10*3/uL (4.50-10.00)
[2021-06-28 18:23] LABS: Albumin 4.3 g/dL (3.8-4.9); Albumin/Globulin Ratio 1.22 (1.60-3.17); Anion Gap 17.3 mmol/L (10.00-18.00); BUN/Creat Ratio 19.55 Ratio (12.00-20.00); Blood Urea Nitrogen 18.2 mg/dL (9.0-27.0); Carbon Dioxide 21.3 mmol/L (20.0-27.5); Globulin 3.5 g/dL (1.6-3.3); HDL Cholesterol 28.9 mg/dL (40.00-60.00); Non-African American GFR(CKD) 96.6 (60.0-200.0); Potassium 4.5 mmol/L (3.5-5.5); Prostate Specific Antigen 2.6 ng/mL (0.00-2.50); T4, Free (Free Thyroxine) 1.37 ng/dL (0.800-1.800); Total Bilirubin 0.2 mg/dL (0.30-1.20); Total Protein 7.7 g/dL (6.2-8.2)
[2021-06-28 18:36] LABS: Chol/HDL Ratio 8.89 Ratio
== END | disposition home or self-care (01) ==
LOC: LABWHC1 12:56
PROVIDERS: ATTEND Urology
DX: Z12.5 Encounter for screening for malignant neoplasm of prostate (principal); E29.1 Testicular hypofunction; I10 Essential (primary) hypertension; N28.89 Other specified disorders of kidney and ureter
CPT/HCPCS: 36415; 71046; 80053; 80061; 83721; 84153; 84439; 84443; 85025

== ENCOUNTER → 2021-07-28 | Outpatient (CLI) | payer OTHER ==
--- NOTE | 2021-07-28 12:56 | XR ---
EXAMINATION TYPE: XR chest 2V DATE OF EXAM: 07/28/2021 COMPARISON: 06/28/2021 INDICATION: Renal disorders, previous abnormal chest TECHNIQUE: Frontal and lateral views of the chest are obtained. FINDINGS: The heart size is normal. The pulmonary vasculature is normal. There is a right lower lobe nodule. This currently measures 1.9 cm which is larger than the 1.6 cm fr om December 2020. Repeat chest CT is recommended to reevaluate this region. IMPRESSION: 1. Enlarging right lower lobe lung nodule. Repeat chest CT is recommended for reevaluation.
== END | disposition home or self-care (01) ==
LOC: RADXRMAIN 12:19
PROVIDERS: ATTEND Urology
DX: R91.1 Solitary pulmonary nodule (principal)
CPT/HCPCS: 71046

== ENCOUNTER → 2021-09-09 | Outpatient (CLI) | payer OTHER ==
--- NOTE | 2021-09-09 11:12 | CT ---
EXAMINATION TYPE: CT chest wo con DATE OF EXAM: 09/09/2021 INDICATION: Solitary pulmonary nodule. CT DLP: 1096.4 mGy.cm Automated Exposure Control for Dose Reduction was Utilized. TECHNIQUE AND CONTRAST: CT scan of the chest without IV contrast administration. COMPARISON: CT dated 12/31/2020 FINDINGS: Artifactual images. Stable 15 mm right lower lobe posterior nodule with central calcification within. Minimal reticulations seen at the medial aspects of the lower lobes. Middle lobe basal pulmonary ate lectasis. No new suspicious or progressive lung region. Patent trachea and main bronchi. No pleural o r pericardial effusion. Slight cardiomegaly. Coronary and arterial atherosclerotic calcifications. The pulmonary trunk measures 3.2 cm which may s uggest pulmonary hypertension. No pathologically enlarged lymph nodes in the chest. Marked artifacts in the upper abdomen. Suspected previous left nephrectomy. Bilateral gynecomastia changes more on the right side. No gross aggressive bone lesion. IMPRESSION: Stable 15 mm right lower lobe posterior nodule. Another follow-up CT scan can be considered in 12 mon ths. No new suspicious or progressive lung lesion. Other findings as described above.
== END | disposition home or self-care (01) ==
LOC: RADCTMAIN 06:58
PROVIDERS: ATTEND Urology
DX: R91.1 Solitary pulmonary nodule (principal)
CPT/HCPCS: 71250

== ENCOUNTER → 2022-04-04 | Outpatient (CLI) | payer OTHER ==
[2022-04-04 14:30] VITALS: BP 134/82; PULSE 59; TEMP 97.7; BMI 53.5
[2022-04-05 10:11] LABS: HCT 46.8 % (39.6-50.0); HGB 14.5 g/dL (13.0-17.0); MCV 80.6 fL (80.0-97.0); Mean Platelet Volume 9.7 fL (9.5-12.2); NRBC Per 100 WBC 0 /100 WBCS (0.0-0.0); Platelet Count 290 X 10*3/uL (140-440); RBC 5.81 X 10*6/uL (4.40-5.60); WBC 7.48 X 10*3/uL (4.50-10.00)
[2022-04-05 10:46] LABS: Albumin 4.6 g/dL (3.8-4.9); Albumin/Globulin Ratio 1.54 (1.60-3.17); Anion Gap 11.4 mmol/L (10.00-18.00); BUN/Creat Ratio 18.8 Ratio (12.00-20.00); Blood Urea Nitrogen 18.8 mg/dL (9.0-27.0); Calcium 10.1 mg/dL (8.7-10.3); Carbon Dioxide 26.2 mmol/L (20.0-27.5); Potassium 4.7 mmol/L (3.5-5.5); Total Bilirubin 0.5 mg/dL (0.30-1.20); Total Protein 7.6 g/dL (6.2-8.2)
== END ==
LOC: BARWHC3 13:51
PROVIDERS: ATTEND Surgery
DX: E66.01 Morbid (severe) obesity due to excess calories (principal); E55.9 Vitamin D deficiency, unspecified; Z88.8 Allergy status to other drugs, medicaments and biological substances; Z87.891 Personal history of nicotine dependence; Z68.42 Body mass index [BMI] 45.0-49.9, adult
CPT/HCPCS: 84425; 80053; 82607; 82746; 85027; 82306; 93005; G0463; 99213

== ENCOUNTER → 2022-08-02 | Outpatient (CLI) | payer OTHER ==
[2022-08-02 15:07] LABS: Basophils # (A) 0.05 X 10*3/uL (0.00-0.10); Basophils % (A) 0.6 %; Eosinophils # (A) 0.21 X 10*3/uL (0.04-0.35); Eosinophils % (A) 2.5 %; HCT 45.5 % (39.6-50.0); HGB 13.7 g/dL (13.0-17.0); Immature Grans, Automated 2.1 %; Lymphocytes # (A) 2.88 X 10*3/uL (0.90-5.00); Lymphocytes % (A) 33.7 %; MCH 24.7 pg (27.0-32.0); MCHC 30.1 g/dL (32.0-37.0); MCV 82.1 fL (80.0-97.0); Mean Platelet Volume 9.2 fL (9.5-12.2); Monocytes # (A) 0.69 X 10*3/uL (0.20-1.00); Monocytes % (A) 8.1 %; NRBC Per 100 WBC 0 /100 WBCS (0.0-0.0); Neutrophils # (A) 4.54 X 10*3/uL (1.80-7.70); Platelet Count 310 X 10*3/uL (140-440); RBC 5.54 X 10*6/uL (4.40-5.60); RDW 16.9 % (11.5-14.5); WBC 8.55 X 10*3/uL (4.50-10.00)
[2022-08-02 15:40] LABS: ALT 53 U/L (10-49); AST 26 U/L (14-35); African American GFR (CKD) 98.4 (60.0-200.0); Albumin 4.4 g/dL (3.8-4.9); Albumin/Globulin Ratio 1.55 (1.60-3.17); Alkaline Phosphatase 77 U/L (41-126); BUN/Creat Ratio 26.21 Ratio (12.00-20.00); Calcium 10.1 mg/dL (8.7-10.3); Carbon Dioxide 27.4 mmol/L (20.0-27.5); Chloride 102 mmol/L (96-109); Chol/HDL Ratio 5.83 Ratio; Globulin 2.8 g/dL (1.6-3.3); Glucose 98 mg/dL (70-110); LDL Cholesterol,Calculated 55.5 mg/dL (0.0-131.0); Non-African American GFR(CKD) 84.9 (60.0-200.0); Potassium 4.7 mmol/L (3.5-5.5); Sodium 141 mmol/L (135-145); Total Protein 7.2 g/dL (6.2-8.2)
== END | disposition home or self-care (01) ==
LOC: LABWHC1 08:14
PROVIDERS: ATTEND Family Medicine
DX: I25.10 Atherosclerotic heart disease of native coronary artery without angina pectoris (principal)
CPT/HCPCS: 36415; 80053; 80061; 84439; 84443; 85025

== ENCOUNTER → 2022-09-19 | Outpatient (CLI) | payer OTHER ==
[2022-09-19 11:43] VITALS: BMI 51.9
== END ==
LOC: BARWHC3 08:41
PROVIDERS: ATTEND Surgery
DX: E66.01 Morbid (severe) obesity due to excess calories (principal); Z71.3 Dietary counseling and surveillance; Z68.43 Body mass index [BMI] 50.0-59.9, adult; Z88.8 Allergy status to other drugs, medicaments and biological substances; Z87.891 Personal history of nicotine dependence
CPT/HCPCS: 97804

== ENCOUNTER 2022-09-22 08:36 | Day surgery (SDC) | payer OTHER ==
[2022-09-19 12:16] VITALS: BMI 51.7
[~2022-09-22 08:36] MED LIST changes: -DEXAMETHASONE SOD PHOSPHATE 10 MG/ML 1 ML VIAL IV ONE; +LACTATED RINGERS 1,000 ML IV SCH; -ONDANSETRON 4 MG/2 ML VIAL IVP ONE; -SCOPOLAMINE 1.5MG/72HR PATCH TRANSDERM ONE
[2022-09-22] MEDS ORDERED: LACTATED RINGERS 1,000 ML IV ONE (09:15)
[2022-09-22 09:28] VITALS: RESP 16; TEMP 97.4
[2022-09-22] MEDS ORDERED: PROPOFOL 10 MG/ML 20 ML VIAL IV ONE (09:46)
[2022-09-22] MEDS ORDERED: LIDOCAINE 2% INJ 20 MG/ML (2 ML VIAL) ONE (09:46)
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
--- NOTE | 2022-09-22 10:07 | P.OP ---
Date of Procedure: 09/22/22 Preoperative Diagnosis: Morbid obesity GERD Postoperative Diagnosis: Gastritis Procedure(s) Performed: EGD Anesthesia: MAC Surgeon: Christopher Garcia Pathology: other (Antrum) Condition: stable Disposition: PACU Description of Procedure: The patient's placed on the endoscopy table in the lateral position. He received IV sedation. The gastro-/oropharynx passed in the esophagus and the stomach. Scope was then placed through the pylorus. The first and second portion of the duodenum appeared normal. Scope was then brought back the antrum this appeared mildly inflamed. A biopsies was performed. Scope was retroflexed there was evidence of a small sliding hiatal hernia. The GE junction was at 40 cm. The distal esophagus appeared normal. Proximal esophagus. Scope withdrawn for patient.
[2022-09-22 10:24] VITALS: BP 120/62; PULSE 60
== END 2022-09-22 11:42 | disposition home or self-care (01) ==
LOC: ORWHC2ENDO 08:36
PROVIDERS: ATTEND Surgery
DX: K29.50 Unspecified chronic gastritis without bleeding (principal); K44.9 Diaphragmatic hernia without obstruction or gangrene; K21.9 Gastro-esophageal reflux disease without esophagitis; E66.01 Morbid (severe) obesity due to excess calories; Z68.43 Body mass index [BMI] 50.0-59.9, adult; I10 Essential (primary) hypertension; E78.5 Hyperlipidemia, unspecified; G47.33 Obstructive sleep apnea (adult) (pediatric); Z99.89 Dependence on other enabling machines and devices; Z99.81 Dependence on supplemental oxygen; Z87.442 Personal history of urinary calculi; D64.9 Anemia, unspecified; Z87.891 Personal history of nicotine dependence; Z79.82 Long term (current) use of aspirin; Z79.899 Other long term (current) drug therapy; Z79.51 Long term (current) use of inhaled steroids; Z88.8 Allergy status to other drugs, medicaments and biological substances
CPT/HCPCS: 88305; 43239; J2704; J2001

== ENCOUNTER → 2022-10-03 | Outpatient (CLI) | payer OTHER ==
[2022-10-03 14:00] VITALS: BP 124/75; PULSE 60; TEMP 98.1; BMI 52.2
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
== END ==
LOC: BARWHC3 13:33
PROVIDERS: ATTEND Surgery
DX: Z09 Encounter for follow-up examination after completed treatment for conditions other than malignant neoplasm (principal); E66.01 Morbid (severe) obesity due to excess calories; E78.5 Hyperlipidemia, unspecified; I10 Essential (primary) hypertension; G47.30 Sleep apnea, unspecified; Z99.89 Dependence on other enabling machines and devices; Z98.84 Bariatric surgery status; Z68.43 Body mass index [BMI] 50.0-59.9, adult; Z87.891 Personal history of nicotine dependence; Z79.899 Other long term (current) drug therapy
CPT/HCPCS: 99211

== ENCOUNTER → 2023-01-16 | Outpatient (CLI) | payer OTHER ==
[2023-01-16 10:10] VITALS: BP 131/78; PULSE 67; TEMP 98; BMI 49.4
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
== END ==
LOC: BARWHC3 09:06
PROVIDERS: ATTEND Surgery
DX: E66.01 Morbid (severe) obesity due to excess calories (principal); K21.9 Gastro-esophageal reflux disease without esophagitis; E78.5 Hyperlipidemia, unspecified; I10 Essential (primary) hypertension; G47.30 Sleep apnea, unspecified; F32.A Depression, unspecified; Z87.891 Personal history of nicotine dependence; Z87.442 Personal history of urinary calculi; Z88.8 Allergy status to other drugs, medicaments and biological substances; Z79.899 Other long term (current) drug therapy; Z68.42 Body mass index [BMI] 45.0-49.9, adult
CPT/HCPCS: 99211

== ENCOUNTER → 2023-05-08 | Outpatient (CLI) | payer OTHER ==
[2023-05-08 18:25] LABS: Basophils # (A) 0.02 X 10*3/uL (0.00-0.10); Basophils % (A) 0.3 %; Eosinophils # (A) 0.18 X 10*3/uL (0.04-0.35); Eosinophils % (A) 2.7 %; HCT 46.5 % (39.6-50.0); HGB 14.6 g/dL (13.0-17.0); Lymphocytes # (A) 2.11 X 10*3/uL (0.90-5.00); Lymphocytes % (A) 31.9 %; MCH 25.7 pg (27.0-32.0); MCHC 31.4 g/dL (32.0-37.0); Mean Platelet Volume 9.5 FL (9.5-12.2); Monocytes # (A) 0.52 X 10*3/uL (0.20-1.00); Monocytes % (A) 7.9 %; NRBC Per 100 WBC 0 X 10*3/uL (0.00-0.01); Neutrophils # (A) 3.72 X 10*3/uL (1.80-7.70); Neutrophils % (A) 56.3 %; Platelet Count 265 X 10*3/uL (140-440); RBC 5.67 X 10*6/uL (4.40-5.60); RDW 16.2 % (11.5-14.5); WBC 6.61 X 10*3/uL (4.50-10.00)
[2023-05-08 19:29] LABS: ALT 49 U/L (10-49); AST 21 U/L (14-35); Albumin 4.5 g/dL (3.8-4.9); Albumin/Globulin Ratio 1.67 Ratio (1.60-3.17); Alkaline Phosphatase 67 U/L (41-126); BUN/Creat Ratio 16.67 Ratio (12.00-20.00); Calcium 9.9 mg/dL (8.7-10.3); Chloride 105 mmol/L (96-109); Chol/HDL Ratio 4.43 Ratio; Globulin 2.7 g/dL (1.6-3.3); Glucose 78 mg/dL (70-110); LDL Cholesterol,Calculated 60.3 mg/dL (0.0-131.0); Sodium 143 mmol/L (135-145); Total Bilirubin 0.5 mg/dL (0.3-1.2); Total Protein 7.2 g/dL (6.2-8.2)
== END | disposition home or self-care (01) ==
LOC: LABWHC1 14:35
PROVIDERS: ATTEND Family Medicine
DX: E78.5 Hyperlipidemia, unspecified (principal); R97.20 Elevated prostate specific antigen [PSA]
CPT/HCPCS: 36415; 80053; 80061; 82306; 83036; 84153; 84443; 85025

== ENCOUNTER → 2023-07-28 | Outpatient (CLI) | payer BC | END | disposition home or self-care (01) | LOC: LABWHC1 14:38 | DX: K14.6 Glossodynia (principal) | CPT/HCPCS: 36415; 86235 ==

== ENCOUNTER → 2023-09-05 | Outpatient (CLI) | payer BC, OTHER ==
[2023-09-05 09:51] LABS: HCT 46.7 % (39.0-53.0); HGB 14.4 gm/dL (13.0-17.5); MCH 25.9 pg (25.0-35.0); MCHC 30.8 g/dL (31.0-37.0); MCV 84.2 fL (80.0-100.0); Mean Platelet Volume 7.3; Platelet Count 234 k/uL (150-450); RBC 5.54 m/uL (4.30-5.90); RDW 15.5 % (11.5-15.5); WBC 5.7 k/uL (3.8-10.6)
[2023-09-05 15:24] LABS: ALT 59 U/L (10-49); AST 26 U/L (14-35); Albumin 4.4 g/dL (3.8-4.9); Albumin/Globulin Ratio 1.76 Ratio (1.60-3.17); Alkaline Phosphatase 66 U/L (41-126); Carbon Dioxide 26.3 mmol/L (21.6-31.8); Chloride 105 mmol/L (96-109); Globulin 2.5 g/dL (1.6-3.3); Glucose 104 mg/dL (70-110); Potassium 4.4 mmol/L (3.5-5.5); Sodium 143 mmol/L (135-145); Total Bilirubin 0.4 mg/dL (0.3-1.2); Total Protein 6.9 g/dL (6.2-8.2)
== END | disposition home or self-care (01) ==
LOC: LABWHC1 09:13
PROVIDERS: ATTEND Urology
DX: C64.9 Malignant neoplasm of unspecified kidney, except renal pelvis (principal)
CPT/HCPCS: 36415; 80053; 85027

== ENCOUNTER → 2023-09-15 | Outpatient (CLI) | payer BC, OTHER ==
--- NOTE | 2023-09-15 09:04 | CT ---
EXAMINATION TYPE: CT chest abdomen wo con DATE OF EXAM: 09/15/2023 COMPARISON: 09/30/2022, 11/27/2020 HISTORY: Malignant neoplasm of unspecified kidney, except renal pelvis. CT DLP: 2565.3 mGycm Automated exposure control for dose reduction was used. FINDINGS: There is a stable partially calcified 1.5 cm nodule right lower lobe. Bilateral areas of subsegmental consolidation or atelectasis. No focal pneumonia or pulmonary edema. No pneumothorax or pleural effusion. Heart is mildly enlarged and there is mild coronary artery calcification. Aorta normal caliber with m ild atherosclerotic changes. No pathologic adenopathy. Airway is patent. Cannot exclude a subcentimeter right inferior thyroid nodule. Assessment for adenop athy limited by noncontrast technique grossly no pathologic adenopathy suspected. There is a small hiatal hernia. Artifacts limit assessment of the upper abdomen. Post left nephrectom y changes seen with no evidence of recurrent mass. Punctate nonobstructing 1 mm right renal calculus. Assessment for mass limited by lack of contrast. Mild prominence of pancreas which is limited by artifact. Adrenal glands normal. There is lateral herniation of the spleen and bowel along the left lateral lef t abdomen. Partially included field of view but appears similar to prior exam. Tiny fat-containing periumbilical hernia. Aorta normal caliber. Pancreas stable and no significant interval change. No gallstones. Aorta normal caliber. Bowel gas pattern nonspecific. There is hypertrophic degenerative change of the spine. Mild gynecomastia incidentally noted. No pathologic adenopathy within the abdomen and pelvis. Chronic def ormity involving lower right rib cage compatible with previous trauma. IMPRESSION: 1. Stable right lower lobe 1.5 cm pulmonary nodule no new evidence of pathologic adenopathy or mass. 2. Post left nephrectomy with no evidence of recurrent mass within the left nephrectomy bed. 3. Left lateral wall hernia containing peritoneal fat, portions of the spleen and bowel similar to pr ior exam and only partially included in [id number]. 4. Nonobstructing punctate right renal calculus. 5. Subsegmental consolidation within the right middle lobe most typical of atelectasis. 6. Limited assessment of the pancreas due to artifact. Pancreatic head region mildly prominent recomm end short-term follow-up ultrasound given limitation of exam.
== END | disposition home or self-care (01) ==
LOC: RADCTMAIN 07:46
PROVIDERS: ATTEND Urology
DX: C64.9 Malignant neoplasm of unspecified kidney, except renal pelvis (principal); R91.1 Solitary pulmonary nodule; N20.0 Calculus of kidney; Z90.5 Acquired absence of kidney
CPT/HCPCS: 71250; 74150

== ENCOUNTER → 2024-03-18 | Outpatient (CLI) | payer OTHER ==
[2024-03-18 15:47] LABS: ALT 63 U/L (10-49); AST 37 U/L (14-35); Chol/HDL Ratio 4.67 Ratio; LDL Cholesterol,Calculated 65.5 mg/dL (0.0-131.0)
== END | disposition home or self-care (01) ==
LOC: LABWHC1 10:49
PROVIDERS: ATTEND Internal Medicine Cardiovascular Disease
DX: E78.2 Mixed hyperlipidemia (principal)
CPT/HCPCS: 36415; 80061; 84450; 84460

== ENCOUNTER → 2024-09-26 | Outpatient (CLI) | payer OTHER ==
[2024-09-26 15:24] LABS: ALT 47 U/L (10-49); AST 30 U/L (14-35); Albumin 4.3 g/dL (3.8-4.9); Albumin/Globulin Ratio 1.59 Ratio (1.60-3.17); Alkaline Phosphatase 61 U/L (41-126); Anion Gap 14.10 mmol/L (4.00-12.00); BUN/Creat Ratio 23.11 Ratio (12.00-20.00); Blood Urea Nitrogen 20.8 mg/dL (9.0-27.0); Calcium 9.6 mg/dL (8.7-10.3); Carbon Dioxide 24.9 mmol/L (21.6-31.8); Chloride 112 mmol/L (96-109); Globulin 2.7 g/dL (1.6-3.3); Glucose 92 mg/dL (70-110); Potassium 4.4 mmol/L (3.5-5.5); Prostate Specific Antigen 2.64 ng/mL (0.000-3.500); Sodium 151 mmol/L (135-145); Total Protein 7.0 g/dL (6.2-8.2)
== END | disposition home or self-care (01) ==
LOC: LABWHC1 10:54
PROVIDERS: ATTEND Urology
DX: N40.1 Benign prostatic hyperplasia with lower urinary tract symptoms (principal); N13.8 Other obstructive and reflux uropathy
CPT/HCPCS: 36415; 80053; 84153